=== PATIENT | male | born 1955 | race Caucasian/White ===

== ENCOUNTER → 2018-04-09 | Day surgery (SDC) | payer OTHER ==
--- NOTE | 2018-04-10 16:20 | PATH ---
Cytology Non-Gynecological Report Patient Name: ZHEN DIGGS [facility]. Rec. #: [id number] /Age/Gender: 1955 (Age: 62) / M Account: [id number] Location: RADIOLOGY INTER Taken: 04/09/2018 Received: 04/09/2018 Reported: 04/10/2018 Physicians: Miriam Villareal M.D. Specimen(s) Received THYROID FNA RIGHT LOBE Clinical History Right thyroid nodule, 2.79 x 2.21 x 1.99 cm Final Diagnosis THYROID, RIGHT, FINE NEEDLE ASPIRATION: SATISFACTORY FOR EVALUATION. B[place]ES[place] CLASS II: BENIGN. CYTOLOGIC FINDINGS ARE CONSISTENT WITH A BENIGN FOLLICULAR NODULE. SMALL FOLLICULAR CELLS AND RARE MACROPHAGES IN A BACKGROUND OF ABUNDANT COLLOID PRESENT. Electronically Signed Janae Patiño M.D. Gross Description Received are eight direct smears, four of which are air-dried and Diff-Quik stained, and four of which are alcohol fixed and Pap stained. Also received is 20 ml of bloody formalin from which one cellblock is prepared.
== END | disposition home or self-care (01) ==
LOC: JRADIR 09:57
PROVIDERS: ATTEND Internal Medicine Endocrinology, Diabetes & Metabolism
PROC: 0G9H3ZX Drainage of Right Thyroid Gland Lobe, Percutaneous Approach, Diagnostic (ICD-10-PCS; principal; 2018-04-09)
DX: E04.1 Nontoxic single thyroid nodule (principal)
CPT/HCPCS: 76942; 88173; 88305-TC